=== PATIENT | male | born 1990 | race Caucasian/White ===

== ENCOUNTER 2018-06-25 09:00 | Emergency (ER) | payer OTHER ==
[2018-06-25 09:12] VITALS: RESP 18
[2018-06-25 11:26] VITALS: PULSE 75
--- NOTE | 2018-06-25 11:27 | RAD ---
Date of service: 06/25/2018 HISTORY: r/o subdiaphragmatic free air COMPARISON: No prior. FINDINGS: LUNGS: No active pulmonary disease. PLEURA: No significant pleural effusion identified, no pneumothorax apparent. CARDIOVASCULAR: Normal. OSSEOUS STRUCTURES: No significant abnormalities. VISUALIZED UPPER ABDOMEN: Normal. OTHER FINDINGS: None. IMPRESSION: No active disease.
--- NOTE | 2018-06-25 11:33 | US ---
Date of service: 06/25/2018 HISTORY: r/o biliary disease COMPARISON: None. TECHNIQUE: Sonographic evaluation of the abdomen. FINDINGS: LIVER: Measures 13.72 x 12.75 cm. Normal echogenicity of the liver parenchyma. No mass. No intrahepatic bile duct dilatation. GALLBLADDER: Unremarkable. No gallstones. COMMON BILE DUCT: Measures 2.4 mm. No stones. No dilatation. PANCREAS: Unremarkable as visualized. No mass. No ductal dilatation. RIGHT KIDNEY: Measures 10.84 x 5.05 x 5.62cm. Normal echogenicity. No calculus, mass, or hydronephrosis. AORTA: No aneurysmal dilatation. IVC: Unremarkable. OTHER FINDINGS: None. IMPRESSION: Unremarkable abdominal sonogram.
--- NOTE | 2018-06-25 11:50 | ED PDOC ---
Arrival/HPI - General Chief Complaint: Abdominal Pain Time Seen by Provider: 06/25/18 09:22 Historian: Patient - History of Present Illness Narrative History of Present Illness (Text): 27 y/o male w/ no sig pmhx presents c/o postrprandially exacerbatied epigastric discomfort, leading to some food aversion, pleurically exacerbted as well. Denies melene /hematochezia, nor melena no hematemeiss. 06/25/18 11:50 Time/Duration: < week Symptom Course: Worsening Quality: Aching Past Medical History - Provider Review Nursing Documentation Reviewed: Yes - Psychiatric Hx Substance Use: No Family/Social History - Physician Review Nursing Documentation Reviewed: Yes Family/Social History: No Known Family HX Smoking Status: Never Smoked Hx Alcohol Use: No Hx Substance Use: No Allergies/Home Meds Allergies/Adverse Reactions: Allergies No Known Allergies Allergy (Verified 06/25/18 09:12) Review of Systems - Physician Review All systems were reviewed & negative as marked: Yes - Review of Systems Constitutional: Normal Eyes: Normal ENT: Normal Respiratory: Normal Cardiovascular: Normal Gastrointestinal: Abdominal Pain Genitourinary Male: Normal Musculoskeletal: Normal Skin: Normal Neurological: Normal Endocrine: Normal Hemo/Lymphatic: Normal Psychiatric: Normal Physical Exam Vital Signs Reviewed: Yes Vital Signs Temp Pulse Resp BP Pulse Ox 06/25/18 11:26 75 18 135/75 100 06/25/18 09:11 97.9 F 78 18 139/83 98 Temperature: Afebrile Blood Pressure: Normal Pulse: Regular Respiratory Rate: Normal Appearance: Positive for: Well-Appearing, Non-Toxic, Comfortable Pain Distress: None Mental Status: Positive for: Alert and Oriented X 3 - Systems Exam Head: Present: Atraumatic, Normocephalic Pupils: Present: PERRL Extroacular Muscles: Present: EOMI Conjunctiva: Present: Normal Mouth: Present: Moist Mucous Membranes Neck: Present: Normal Range of Motion Respiratory/Chest: Present: Clear to Auscultation, Good Air Exchange. No: Respiratory Distress, Accessory Muscle Use Cardiovascular: Present: Regular Rate and Rhythm, Normal S1, S2. No: Murmurs Abdomen: Present: Other (epigastric ttp ). No: Tenderness, Distention, Peritoneal Signs Back: Present: Normal Inspection Upper Extremity: Present: Normal Inspection. No: Cyanosis, Edema Lower Extremity: Present: Normal Inspection. No: Edema Neurological: Present: GCS=15, CN II-XII Intact, Speech Normal Skin: Present: Warm, Dry, Normal Color. No: Rashes Psychiatric: Present: Alert, Oriented x 3, Normal Insight, Normal Concentration Medical Decision Making ED Course and Treatment: 27 y/o malke w/ postprandially exacetrbated epigastric discomfort , deneying pancreatitis risk factors. a/p agastrtis det/lifestyle modification ruq sono cxr to r/o subdiphragmentic free trial of po pepcid serial bowle exams if better an studies wn/ ,, discharge home w/ GI f/u and pepcid 06/25/18 11:52 - RAD Interpretation Radiology Orders: 06/25/18 09:45 GALLBLADDER & PANCREAS [US] Stat 06/25/18 09:46 CHEST PORTABLE [RAD] Stat - Medication Orders Current Medication Orders: Discontinued Medications Famotidine (Pepcid) 40 mg PO STAT STA Stop: 06/25/18 09:36 Last Admin: 06/25/18 09:45 Dose: 40 mg Disposition/Present on Arrival - Present on Arrival Any Indicators Present on Arrival: No History of DVT/PE: No History of Uncontrolled Diabetes: No Urinary Catheter: No History of Decub. Ulcer: No History Surgical Site Infection Following: None - Disposition Have Diagnosis and Disposition been Completed?: Yes Diagnosis: Gastritis Disposition: HOME/ ROUTINE Disposition Time: 11:54 Patient Plan: Discharge Condition: GUARDED Print Language: ALB[place] Additional Instructions: Please modify your diet initially avoiding meats/cheeses/large meals/chocoalte/ coffee/alcol, greasy and/or scy foods. Instead slowly advance your diet commecing with bland foods then slowly advancing to reguar dane. Prescriptions: Aluminum Hydroxide/Magnesium H [Maalox 30 ml] 30 ml PO Q8 PRN 5 Days udc PRN Reason: Pain, Moderate (4-7) Famotidine [Pepcid] 20 mg PO BID PRN #30 tab PRN Reason: Dyspepsia Forms: [facility] (Citizen Of [place]), WORK NOTE
[2018-06-25 12:13] VITALS: BP 125/74; TEMP 98.5; O2SAT 99
== END 2018-06-25 12:12 | disposition home or self-care (01) ==
LOC: ED 09:00
DX: K29.70 Gastritis, unspecified, without bleeding (principal)